=== PATIENT | female | born 1930 | race Caucasian/White ===

== ENCOUNTER 2019-05-08 11:33 | Day surgery (SDC) | payer MEDICARE, OTHER ==
[~2019-05-08] VITALS: Ht 167.6 cm; Wt 61.0 kg
[2019-05-08 12:30] VITALS: BP 118/82
[2019-05-08] MEDS ORDERED: CHOL200059 PO (12:30)
[2019-05-08] MEDS ORDERED: ACET325C6 PO (12:30)
[2019-05-08] MEDS ORDERED: lidocaine patch (12:30)
[2019-05-08] MEDS ORDERED: RIVA20TA PO (12:30)
[2019-05-08] MEDS ORDERED: BACL20TA PO (12:30)
[2019-05-08] MEDS ORDERED: LACTATED RINGERS 1,000 ML IV SCH ×2 (12:42→12:44)
[2019-05-08 13:03] LABS: CALCIUM 8.6 mg/dL (8.5-10.1); CREATININE 0.59 mg/dL (0.55-1.02)
[2019-05-08 13:08] LABS: ANION GAP 6 mmol/L (5-15)
[2019-05-08] MEDS ORDERED: LORATIDINE (13:10)
[2019-05-08] MEDS ORDERED: DIGO125T PO (13:10)
[2019-05-08] MEDS ORDERED: LISI2.5T PO (13:10)
[2019-05-08] MEDS ORDERED: FURO-93 PO (13:10)
[2019-05-08] MEDS ORDERED: DOCU-131 PO (13:10)
[2019-05-08] MEDS ORDERED: METO25TA2 PO (13:10)
[2019-05-08] MEDS ORDERED: ATOR20TA86 PO (13:10)
[2019-05-08 13:11] LABS: CHLORIDE 113 mmol/L (98-107)
[2019-05-08] MEDS ORDERED: FENTANYL PF 250 MCG/5ML ONE (13:24)
[2019-05-08] MEDS ORDERED: PROPOFOL 50 ML ONE (13:24)
[2019-05-08] MEDS ORDERED: ONDANSETRON 2MG/ML, 2ML ONE (13:39)
[2019-05-08] MEDS ORDERED: GENTAMICIN 80 MG/2 ML ONE (13:55)
[2019-05-08] MEDS ORDERED: AMPICILLIN 1 GM ONE (13:55)
[2019-05-08] MEDS ORDERED: EPHEDRINE 50 MG/ML, 1ML IM PRN (14:30)
[2019-05-08] MEDS ORDERED: ONDANSETRON 2MG/ML, 2ML IV PRN (14:30)
[2019-05-08] MEDS ORDERED: DIAZEPAM 5 MG/ML, 2ML IVPush PRN (14:30)
[2019-05-08] MEDS ORDERED: ONDANSETRON ODT 8 MG PO PRN (14:30)
[2019-05-08] MEDS ORDERED: EPHEDRINE 50 MG/ML, 1ML IVPush PRN (14:30)
[2019-05-08] MEDS ORDERED: HYDROmorphone 2 MG/ML, 1ML IVPush PRN (14:30)
[2019-05-08] MEDS ORDERED: FENTANYL PF 100 MCG/2ML IV PRN (14:30)
[2019-05-08] MEDS ORDERED: METOPROLOL 1 MG/ML, 5ML IV PRN (14:30)
[2019-05-08] MEDS ORDERED: DIPHENHYDRAMINE 50 MG/ML, 1ML IVPush PRN (14:30)
[2019-05-08] MEDS ORDERED: OXYcodone 5 MG/5 ML ORAL.SOL UDC PO PRN (14:30)
== END 2019-05-08 18:05 | disposition home or self-care (01) ==
LOC: EDSEX 11:33 → OUT 11:33
PROVIDERS: ATTEND Student in an Organized Health Care Education/Training Program
DX: N20.1 Calculus of ureter (principal); R33.9 Retention of urine, unspecified; E11.9 Type 2 diabetes mellitus without complications; E78.2 Mixed hyperlipidemia; I48.91 Unspecified atrial fibrillation; I11.0 Hypertensive heart disease with heart failure; I50.20 Unspecified systolic (congestive) heart failure; Z79.01 Long term (current) use of anticoagulants; Z87.891 Personal history of nicotine dependence; Z86.73 Personal history of transient ischemic attack (TIA), and cerebral infarction without residual deficits; Z87.440 Personal history of urinary (tract) infections; Z79.84 Long term (current) use of oral hypoglycemic drugs
CPT/HCPCS: 36415; 51705; 52356; 74420; 80048; 82360; 88300; 93005; C1769; C2617; J0290; J1580; J2405; J2704; J3010; J7120; Q9958